=== PATIENT | female | born 2000 | race Caucasian/White ===

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

== ENCOUNTER 2022-07-13 08:40 | Day surgery (SDC) | payer OTHER ==
[~2022-07-13] VITALS: Ht 188 cm; Wt 109.0 kg
--- NOTE | ~2022-07-13 | OR ---
[facility] [address] [place], [place] [address] Draft DATE OF OPERATION: 07/13/2022 SURGEON: Charli Rodriguez MD PREOPERATIVE DIAGNOSIS: Chronic tonsillitis. POSTOPERATIVE DIAGNOSIS: Chronic tonsillitis. PROCEDURE: Tonsillectomy. 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 PREOPERATIVE HISTORY: Houston is a 22-year-old lady with chronic sore throats, chronic tonsillitis, strep throat, tonsillar hypertrophy, taken to the operating for the above-mentioned procedures. OPERATIVE PROCEDURE AND FINDINGS: After informed consent, the patient was taken to the operating room, placed in the supine position where general orotracheal anesthesia was induced. The patient and procedure were verified. The patient was repositioned. McIvor mouth gag placed into suspension. Headlight exam of the pharynx showed moderately hypertrophic cryptic obstructive tonsils. The left tonsil was grasped with a tenaculum retracted medially and removed from its fossa with mucosal sparing incisions with Coblation. Field was dry after the procedure, same procedure on the right tonsil. Tonsils were sent to pathology. Mouth gag was released for several minutes. Reinspection showed no bleeding points. The pharynx was suctioned clear of blood secretions. Mouth gag was removed. The patient was awakened, extubated, and transported to recovery room in good condition. No complications. BLOOD LOSS: Minimal. SPECIMEN: To pathology. PATIENT NAME: HOUSTON STARKEY OPERATIVE REPORT DATE OF : 02 REPORT #: [id number] PHYSICIAN: CHARLI RODRIGUEZ MD PCP: ROXY MESSER REPORT IS CONFIDENTIAL AND NOT TO BE RELEASED WITHOUT AUTHORIZATION [address] [place] [address] Draft DRAINS: None. Charli Rodriguez MD GC/VICKY /[id number] Copies: ~ PATIENT NAME: HOUSTON STARKEY OPERATIVE REPORT DATE OF : 02 REPORT #: [id number] PHYSICIAN: CHARLI RODRIGUEZ MD PCP: ROXY MESSER REPORT IS CONFIDENTIAL AND NOT TO BE RELEASED WITHOUT AUTHORIZATION
[~2022-07-13 08:40] MED LIST changes: +VENTOLIN HFA18 GM INH
--- NOTE | 2022-07-13 11:30 | NUR ---
07/13/22 1130 Sheets,Martina 1116 PT ARRIVED TO PACU TEARFUL AND DROWSY. PT DENIES PAIN AND NAUSEA. VSS. 1120 O2 REMOVED AND HOB INCREASED SLIGHTLY. PT REPORTS 5/10 PAIN IN THROAT, TOLERABLE AT THIS TIME. 1125 PLAN OF CARE DISCUSSED.
--- NOTE | 2022-07-13 12:17 | NUR ---
1155: PATIENT BACK IN DAY SURGERY ROOM FROM PACU. RATES PAIN 7/10. GIVEN APPLESAUCE TO EAT. TOLERATING SIPS OF WATER. VS CHECKED. IV SITE WNL. SCDs ON. MEDICATED FOR PAIN WITH LORTAB ELIXIR AFTER EATING APPLESAUCE. CALL LIGHT WITHIN REACH. 1205: MOTHER ARRIVED. BACK IN ROOM WITH PATIENT.
[2022-07-13] MEDS ORDERED: HYDROCODONE-ACE15 M3 PO (12:25)
--- NOTE | 2022-07-13 13:19 | NUR ---
1235: PATIENT RATES PAIN /. PATIENT ASSISTED OOB. STAND BY ASSIST WHILE WALKING AROUND ROOM. PATIENT DRESSED WITH HELP FROM MOTHER. PATIENT WALKED INDEPENDENTLY TO BATHROOM. VOID WITHOUT DIFFICULTY. GAIT STEADY BACK TO ROOM. 1245: VS CHECKED. DISCHARGE INSTRUCTIONS GIVEN TO PATIENT AND MOTHER. IV DC'D WNL. TIP INTACT. DRESSING APPLIED. 1300: PATIENT DISCHARGED TO HOME VIA WHEELCHAIR WITH MOTHER.
--- NOTE | 2022-07-14 16:56 | PATH ---
[facility] [address] [place], [place] [address] Signed SPECIMEN(S): A LEFT TONSIL, GROSS ONLY SPECIMEN(S): B RIGHT TONSIL, GROSS ONLY SPECIMEN SOURCE: A. LEFT TONSIL, GROSS ONLY B. RIGHT TONSIL, GROSS ONLY CLINICAL HISTORY: Pre: Chronic tonsillitis. Post: Tonsillectomy. FINAL PATHOLOGIC DIAGNOSIS: A. Left tonsil, gross only: - [place] tonsil with unremarkable gross findings. B. Right tonsil, gross only: - [place] tonsil with unremarkable gross findings. JVR:[facility]:[id number] GROSS DESCRIPTION: Two specimens are received in two containers, labeled "MP." A. The specimen, labeled "MP, A," and designated on the requisition "left tonsil," is received in formalin and consists of a red-pink to hemorrhagic tonsil (3.4 x 2.2 x 2.0 cm). The tonsil is serially sectioned to reveal a pink-olivares to hemorrhagic cut surface with yellow-olivares, friable and hemorrhagic material within the crypts. No masses or lesions are grossly identified. The specimen is for gross examination only. B. The specimen, labeled "MP, B," and designated on the requisition "right tonsil," is received in formalin and consists of one pink-olivares to hemorrhagic tonsil (3.4 x 2.2 x 1.9 cm). The specimen is serially sectioned to reveal a pink-olivares cut surface with hemorrhagic and yellow-olivares, friable material within the crypts. No masses or lesions are grossly identified. The specimen is for gross examination only. AC (under the direct supervision of a pathologist) The Gross Description was prepared using a voice recognition system. The report was reviewed for accuracy; however, sound-alike word errors, addition and/or deletions may occur. If there is any question about this report, please contact Client Services. PERFORMING LABORATORY: PATIENT NAME: HOUSTON STARKEY PATHOLOGY DATE OF : 02 REPORT #: [id number] PHYSICIAN: [facility] PCP: ROXY MESSER REPORT IS CONFIDENTIAL AND NOT TO BE RELEASED WITHOUT AUTHORIZATION [facility] [address] [place] [id number] Signed The technical component was performed by [facility], [address] [place] [id number] (CLIA# [id number]). [facility], [address] [place] [id number] (CLIA#: [id number]). Diagnostician: Gerald Ya MD Pathologist Electronically Signed 07/14/2022 Copies: ~ PATIENT NAME: HOUSTON STARKEY PATHOLOGY DATE OF : 02 REPORT #: [id number] PHYSICIAN: [facility] PCP: ROXY MESSER REPORT IS CONFIDENTIAL AND NOT TO BE RELEASED WITHOUT AUTHORIZATION
== END 2022-07-13 13:00 | disposition home or self-care (01) ==
LOC: OPS 08:40 → DS 09:00 → OPS 09:26 → DS 10:00 → OPS 13:00
PROVIDERS: ATTEND Otolaryngology
PROC: 0CTPXZZ Resection of Tonsils, External Approach (ICD-10-PCS; principal; 2022-07-13 10:00)
DX: J35.01 Chronic tonsillitis (principal); Z20.822 Contact with and (suspected) exposure to COVID-19
CPT/HCPCS: J0131; J1100; J2001; J2250; J2405; J2704; J3010; J7121

== ENCOUNTER 2022-07-16 03:53 | Emergency (ER) | payer OTHER ==
[~2022-07-16] VITALS: Ht 188 cm; Wt 108.9 kg
[~2022-07-16 03:53] MED LIST changes: +HYDROCODONE-ACE15 M3 PO
== END 2022-07-16 04:32 | disposition home or self-care (01) ==
LOC: ED 03:53
DX: G89.18 Other acute postprocedural pain (principal); R07.0 Pain in throat; Z90.49 Acquired absence of other specified parts of digestive tract
CPT/HCPCS: 99283; J7510

== ENCOUNTER 2022-10-22 16:27 | Emergency (ER) | payer OTHER ==
[~2022-10-22] VITALS: Ht 188 cm; Wt 109.0 kg
[2022-10-22] MEDS ORDERED: ONDANSETRON ODT8 MG PO (17:47)
[2022-10-22] MEDS ORDERED: HYDROCODON-ACE1 EA11 PO (17:47)
== END 2022-10-22 17:59 | disposition home or self-care (01) ==
LOC: ED 16:27
DX: N94.6 Dysmenorrhea, unspecified (principal); J45.909 Unspecified asthma, uncomplicated
CPT/HCPCS: 81001; 84703; 87088; 99284; A9270

== ENCOUNTER 2023-07-26 23:08 | Emergency (ER) | payer OTHER ==
[~2023-07-26] VITALS: Ht 188 cm; Wt 108.9 kg
[~2023-07-26 23:08] MED LIST changes: +ADVIL200 MG PO; +HYDROCODON-ACE1 EA11 PO; +ONDANSETRON ODT8 MG PO
[2023-07-26] MEDS ORDERED: CRUTCHES XX (23:39)
[2023-07-26 23:45] VITALS: BP 151/88
[2023-07-27] MEDS ORDERED: HYDROCODON-ACE1 EA10 PO (00:04)
== END 2023-07-26 23:50 | disposition home or self-care (01) ==
LOC: ED 23:08
DX: S92.251A Displaced fracture of navicular [scaphoid] of right foot, initial encounter for closed fracture (principal); X50.0XXA Overexertion from strenuous movement or load, initial encounter; Z88.5 Allergy status to narcotic agent
CPT/HCPCS: 73610; 73630; A9270

== ENCOUNTER 2024-09-26 23:04 | Emergency (ER) | payer OTHER ==
[~2024-09-26] VITALS: Ht 188 cm; Wt 105.2 kg
[~2024-09-26 23:04] MED LIST changes: +CRUTCHES XX; +HYDROCODON-ACE1 EA10 PO
[2024-09-26] MEDS ORDERED: ondansetron HCL 4 MG/2 ML VIAL IV ONE (23:30)
[2024-09-26] MEDS ORDERED: SODIUM CHLORIDE 0.9% 500 ML IV ONE (23:30)
[2024-09-26 23:50] LABS: BASOPHILS 0.3 % (0-2); EOSINOPHILS 0.2 % (0-6); HEMATOCRIT 42.4 % (35.0-50.0); HEMOGLOBIN 14.2 g/dL (12.0-18.0); LYMPHOCYTES 5.3 % (24-44); MCH 28.4 (27-36); MCHC 33.5 g/dl (30-36); MCV 84.9 fl (81-99); MONOCYTES 4.5 % (0-12); NEUTROPHILS 89.7 % (39-80); PLATELET COUNT 316 K/uL (140-440); RDW 14.3 (10.5-15.0)
[2024-09-27 00:06] LABS: ALBUMIN 4.5 g/dL (3.4-5.0); ANION GAP 15.7 (7-21); BILIRUBIN, TOTAL 0.5 ng/dL (0.2-1.0); BUN/CREATININE RATIO 13.33 (6.0-28.6); CALCIUM 9.7 mg/dL (8.5-10.1); CREATININE, SERUM 0.9 mg/dL (0.55-1.02); MAGNESIUM 1.6 mg/dL (1.8-2.4); POTASSIUM 3.7 mmol/L (3.5-5.1)
[2024-09-27 00:51] LABS: BILIRUBIN, URINE NEGATIVE (negative); BLOOD/HGB, URINE NEGATIVE (Negative); KETONE, URINE NEGATIVE (Negative); LEUK ESTERASE, URINE NEGATIVE (negative); NITRITE, URINE NEGATIVE (negative); PH, URINE 6.5 (5-7)
[2024-09-27 01:02] LABS: BACTERIA, URINE 1+ /hpf (negative); CASTS, URINE HYALINE 1+ \\lpf; CRYSTALS, URINE NONE SEEN (0-1+); EPITHELIAL CELLS, URINE 0 /lpf (0-1+); RED BLOOD CELLS, URINE 0-1 /hpf (0-5); REFLEX CULTURE, URINE No (No); WHITE BLOOD CELLS, URINE 0-1 /HPF (0-5)
[2024-09-27 01:03] LABS: COLLECTION TYPE, URINE CLEAN CATCH
[2024-09-27] MEDS ORDERED: SODIUM CHLORIDE 0.9% 2,000 ML IV SCH (01:30)
[2024-09-27] MEDS ORDERED: METOCLOPRAMIDE HCL 10 MG/2 ML SDV IV ONE (01:30)
[2024-09-27 01:49] LABS: AMPHETAMINES, URINE NEGATIVE (NEGATIVE); BARBITURATES, URINE NEGATIVE (NEGATIVE); BENZODIAZEPINE, URINE NEGATIVE (NEGATIVE); BUPRENORPHINE, URINE NEGATIVE (NEGATIVE); CANNABINOID, URINE POSITIVE (NEGATIVE); COCAINE, URINE NEGATIVE (NEGATIVE); ECSTASY, URINE NEGATIVE (NEGATIVE); FENTANYL, URINE NEGATIVE (NEGATIVE); METHADONE, URINE NEGATIVE (NEGATIVE); OPIATES, URINE NEGATIVE (NEGATIVE); OXYCODONE, URINE NEGATIVE (NEGATIVE); PHENCYCLIDINE, URINE NEGATIVE (NEGATIVE)
[2024-09-27] MEDS ORDERED: ONDANSETRON ODT8 MG PO (02:23)
[2024-09-27] MEDS ORDERED: ONDANSETRON 4 MG HOME.PACK SL ONE (02:30)
[2024-09-27 03:13] VITALS: BP 122/81
== END 2024-09-27 03:13 | disposition home or self-care (01) ==
LOC: ED 23:04
PROVIDERS: Emergency Medicine
DX: K29.00 Acute gastritis without bleeding (principal); J45.909 Unspecified asthma, uncomplicated; Z88.5 Allergy status to narcotic agent
CPT/HCPCS: 36415; 80053; 80307; 81001; 83735; 84703; 85025; 96361; 96374; 96375; 99283-25; A9270; J2405; J2765; J7030; J7040

== ENCOUNTER 2025-04-28 01:19 | Emergency (ER) | payer OTHER ==
[~2025-04-28] VITALS: Ht 188 cm; Wt 112.6 kg
[~2025-04-28 01:19] MED LIST changes: +AMITRIPTYLINE H25 MG PO; +CELEBREX200 MG PO; +CYCLOBENZAPRINE10 MG PO; +FAMOTIDINE20 MG PO; +HYDROXYZINE HCL25 MG PO; +MONTELUKAST SOD10 MG PO
[2025-04-28] MEDS ORDERED: SODIUM CHLORIDE 0.9% 1,000 ML IV ONE (01:30)
[2025-04-28] MEDS ORDERED: ONDANSETRON ODT8 MG PO (02:04)
[2025-04-28] MEDS ORDERED: ONDANSETRON 4 MG HOME.PACK SL ONE (02:15)
[2025-04-28 02:33] VITALS: BP 10/104
== END 2025-04-28 02:43 | disposition home or self-care (01) ==
LOC: ED 01:19
DX: F10.129 Alcohol abuse with intoxication, unspecified (principal); J45.909 Unspecified asthma, uncomplicated; Z88.8 Allergy status to other drugs, medicaments and biological substances; Z79.2 Long term (current) use of antibiotics
CPT/HCPCS: 96374; 99283-25; A9270; J2405; J7030

== ENCOUNTER 2025-08-21 08:55 | Day surgery (SDC) | payer OTHER ==
[~2025-08-21] VITALS: Ht 188 cm; Wt 109.0 kg
[~2025-08-21 08:55] MED LIST changes: +IBLOOD GLUCOSE TEST STRIP 1 EA TEST VI PRN; +LACTATED RINGER'S 1,000 ML IV SCH; +LIDOCAINE HCL 1% 5 ML SDV INJ ONE; +SEVOFLURANE 250 ML BTL INH ONE
[2025-08-21 10:25] VITALS: BP 141/84
[2025-08-21] MEDS ORDERED: DEXAMETHASONE SOD PHOS 4 MG/ML VIAL ONE (16:06)
[2025-08-21] MEDS ORDERED: KETOROLAC TROMETHAMINE 30 MG/ML VIAL ONE (16:06)
[2025-08-21] MEDS ORDERED: MIDAZOLAM HCL 2 MG/2 ML VIAL ONE (16:06)
[2025-08-21] MEDS ORDERED: LIDOCAINE HCL 2% 5 ML SDV ONE (16:06)
[2025-08-21] MEDS ORDERED: fentaNYL citrate 100 MCG/2 ML VIAL ONE (16:06)
[2025-08-21] MEDS ORDERED: SUGAMMADEX SODIUM 200 MG/2 ML ML ONE (16:06)
[2025-08-21] MEDS ORDERED: ROCURONIUM BROMIDE 50 MG/5 ML SYR ONE (16:06)
--- NOTE | 2025-08-21 16:32 | NUR ---
1130: PATIENT UPDATED ON DELAY OF HER SURGERY. NO NEEDS AT THIS TIME. CALL LIGHT WITHIN REACH. 1320: PATIENT UPDATED THAT THEY HAVE STARTED THE SURGERY AHEAD OF HER. NO NEEDS AT THIS TIME. CALL LIGHT WITHIN REACH. 1410: PATIENT'S MOTHER UPDATED ON DELAY OF SURGERY BY SERA KOHLER. 1545: PATIENT NOTIFIED SURGERY AHEAD OF HER HAS FINISHED BUT DR. VELÁSQUEZ NEEDS TO GO TO [facility] TO CHECK ON HIS OTHER PATIENT'S. 1605: SCDs PLACED ON PATIENT. PATIENT NOTIFIED ANESTHESIA WILL BE IN SOON AND DR. VELÁSQUEZ WILL STOP IN TO SEE HER. FAMILY AT BEDSIDE. CALL LIGHT WITHIN REACH.
[2025-08-21] MEDS ORDERED: ESMOLOL HCL 100 MG/10 ML VIAL IV ONE (16:50)
[2025-08-21] MEDS ORDERED: IBLOOD GLUCOSE TEST STRIP 1 EA TEST VI PRN (17:00)
[2025-08-21] MEDS ORDERED: MIDAZOLAM HCL 2 MG/2 ML VIAL IV PRN (17:00)
[2025-08-21] MEDS ORDERED: NALOXONE HCL 0.4 MG SYR IV PRN ×2 (17:00→17:15)
[2025-08-21] MEDS ORDERED: fentaNYL citrate 50 MCG/ML SDV IV PRN (17:00)
[2025-08-21] MEDS ORDERED: ACETAMINOPHEN 1,000 MG/100 ML VIAL ONE (17:04)
[2025-08-21] MEDS ORDERED: MAGNESIUM HYDROXIDE/AL HYDROX 30 ML CUP PO PRN (17:15)
[2025-08-21] MEDS ORDERED: SIMETHICONE 80 MG CHEW PO PRN (17:15)
[2025-08-21] MEDS ORDERED: PROCHLORPERAZINE EDISYLATE 10 MG/2 ML VIAL IV PRN (17:15)
[2025-08-21] MEDS ORDERED: FAMOTIDINE 20 MG/ 2 ML VIAL IV PRN (17:15)
--- NOTE | 2025-08-21 17:27 | NUR ---
08/21/251726 Brenda Parra 1716: PT ARRIVES TO PACU REACTIVE. SHE IS CONNECTED TO MONITORS. REPORT RECEIVED FROM DATA ARCHITECT AND RN CASE MANAGEMENT. LOYD 1725: PT WAKES, DENIES PAIN OR NAUSEA, BUT REPORTS A DRY/SCRATCHY THROAT. SHE IS EDUCATED THAT SHE HAD A TUBE IN HER THROAT DURING SURGERY. OXYGEN IS TURNED OFF.
--- NOTE | 2025-08-21 17:45 | NUR ---
REPORT RECEIED FROM URIEL BENDER RN, PATIENT TRANSFERRED TO MED SURG BED. FAMILY AT BEDSIDE. VITAL SIGNS COMPLETE.
[2025-08-21 18:02] VITALS: BP 134/84
--- NOTE | 2025-08-21 18:06 | NUR ---
PATIENT IN BED, ASSESMENT COMPLETE. FAMILY AT BEDSIDE, CALL LIGHT IN REACH.
--- NOTE | 2025-08-21 18:19 | NUR ---
PRN MEDICATION ADMINISTERED PER PATIENT REQUEST AND EMAR ORDER. PATIENT PROVIDED WITH HEAT PACK AND WARM BLANKET. PATIENT DENIES CONCERNS. DINNER AT BEDSIDE. CALL LIGHT IN REACH. SCDS AND CPOX ON.
[2025-08-21 18:51] VITALS: BP 135/90
--- NOTE | 2025-08-21 19:40 | NUR ---
RECEIVED REPORT FROM SERA JIMENEZ. PT REPORTING PAIN, MD CALLED AND AT BEDSIDE. MD REPORTS HE WILL PUT NEW ORDERS. NO OTHER NEEDS AT THIS TIME, CALL LIGTH WITHIN REACH, HOURLY POST OP VITALS COMPLETED.
[2025-08-21 19:51] VITALS: BP 153/84
--- NOTE | 2025-08-21 20:09 | NUR ---
PT CALLS REPORTING SHE WANTS TO GO HOME, AWARE AND REPORTS SHE CAN DISCHARGE.
--- NOTE | 2025-08-21 20:27 | NUR ---
PHONE CALL MADE TO DR VELÁSQUEZ REGARDING DISCHARGE. PER DR VELÁSQUEZ, OKAY TO CONTINUE ALL HOME MEDS NORMAL. pt TO CALL MD OFFICE ON TUESDAY (TOMORROW BEING THANKSGIVING) TO SCHEDULE F/U APPT IF APPT IS NOT ALREADY SET. pt AND FAMILY VERBALIZE UNDERSTANDING. THIS RN TOOK pt VIA WC TO FRONT OF HOSPITAL ENTRANCE TO PERSONAL VEHICLE, FAMILY TO DRIVE PT HOME. PRIMARY RN LUCY COMPLETED DC INSTRUCTIONS.
--- NOTE | 2025-08-21 20:30 | NUR ---
D/C INFORMATION & EDUCATION GIVEN. ALL QUESTIONS ANSWERED. PT HAS ALL BELONGINGS. PT WHEELED OUT IN W/C BY SERA GAGNON W/ FAMILY MEMBERS PRESENT.
[2025-08-21] MEDS ORDERED: SIMETHICONE 80 MG CHEW PO SCH (21:00)
[2025-08-21] MEDS ORDERED: IBUPROFEN 800 MG TAB PO SCH (22:00)
[2025-08-22] MEDS ORDERED: LACTATED RINGER'S 1,000 ML IV SCH (05:00)
[2025-08-22] MEDS ORDERED: LIDOCAINE HCL 1% 5 ML SDV INJ ONE (07:00)
[2025-08-22] MEDS ORDERED: IBLOOD GLUCOSE TEST STRIP 1 EA TEST VI PRN (07:00)
== END 2025-08-21 20:37 | disposition home or self-care (01) ==
LOC: DS 08:55 → MS 17:40 → DS 20:37
PROVIDERS: ATTEND Obstetrics & Gynecology
PROC: 0WJG4ZZ Inspection of Peritoneal Cavity, Percutaneous Endoscopic Approach (ICD-10-PCS; principal; 2025-08-21 11:30)
PROC: 0TJB8ZZ Inspection of Bladder, Via Natural or Artificial Opening Endoscopic (ICD-10-PCS; 2025-08-21 11:30)
DX: N94.6 Dysmenorrhea, unspecified (principal); R30.0 Dysuria; Z88.5 Allergy status to narcotic agent
CPT/HCPCS: 00840; 94762; J0131; J1100; J1885; J2003; J2250; J2405; J2704; J3010; J3490; J7121